=== PATIENT | female | born 1940 | race Caucasian/White ===

== ENCOUNTER → 2017-10-18 11:09 | Outpatient (CLI) | payer MEDICARE, OTHER, SELFPAY ==
[2017-10-18 14:53] LABS: Anion Gap 6 (5-15); BUN 22 mg/dL (7-18); BUN/Creat Ratio 22.8 RATIO (10-20); Calcium,Total 8.7 mg/dL (8.5-10.1); Chloride 101 mmol/L (98-107); Creatinine, Serum 0.97 mg/dL (0.55-1.02); EST Glomerular Filtration Rate 59 mL/min (>60); Est Glom Filt Rate - Afr Amer 72 mL/min (>60); Glucose 85 mg/dL (74-106); Potassium 4.3 mmol/L (3.5-5.1); Sodium Level 134 mmol/L (136-145)
== END ==
PROVIDERS: Family Provider Family Medicine; PCP Family Medicine; Visit Provider Family Medicine
DX: I10 Essential (primary) hypertension (principal)
CPT/HCPCS: 36415; 80048

== ENCOUNTER → 2018-10-20 | Outpatient (CLI) | payer MEDICARE, OTHER, SELFPAY ==
[2018-10-20 14:21] LABS: AST(SGOT) 25 U/L (15-37); Alanine Aminotransfer ALT/SGPT 20 U/L (13-56); Anion Gap 7 (5-15); BUN 22 mg/dL (7-18); BUN/Creat Ratio 25.4 RATIO (10-20); Calcium,Total 8.9 mg/dL (8.5-10.1); Chloride 106 mmol/L (98-107); Cholesterol 193 mg/dL (200); Creatinine, Serum 0.87 mg/dL (0.55-1.02); EST Glomerular Filtration Rate 67 mL/min (>60); Est Glom Filt Rate - Afr Amer 81 mL/min (>60); Glucose 96 mg/dL (74-106); High Density Lipoprotein 79 mg/dL; Potassium 4.5 mmol/L (3.5-5.1); Sodium Level 140 mmol/L (136-145); Triglycerides 88 mg/dL; Very Low Density Lipoprotein 18 mg/dL (5-40)
== END | disposition home or self-care (01) ==
LOC: MFPLAB 11:39
PROVIDERS: Family Provider Family Medicine; PCP Family Medicine; Visit Provider Family Medicine
DX: E78.5 Hyperlipidemia, unspecified (principal); I10 Essential (primary) hypertension
CPT/HCPCS: 36415; 80048; 80061; 84450; 84460